=== PATIENT | female | born 1990 | race Caucasian/White ===

== ENCOUNTER 2024-12-06 13:22 | Emergency (ER) | payer SELFPAY ==
[2024-12-06 13:28] VITALS: BP 134/77; BMI 24.1
--- NOTE | 2024-12-06 14:12 | ED.GENMED ---
History of Present Illness
General
Chief Complaint: Foreign Body Ingestion
Source: patient
Exam Limitations: none
Time Seen by Provider: 12/06/24 14:04
Nursing documentation reviewed up to this point in time: agreed with
History of Present Illness
History of Present Illness:
Patient is a 34-year-old female who presents under police custody with concerns of possible foreign body seen on intake scan at residential. Patient apparently had a warrant for her arrest and was taken to the residential today where she had an intake imaging
scan performed which showed an abnormality in the pelvis region. She will refuse patient has there is concern that she may have a foreign body in her rectal/vaginal region. Patient sent to the emergency department for further imaging and
evaluation.
Patient denies any foreign body insertion. Patient denies any fever or chills or abdominal pain. Patient denies any chest pain or shortness of breath. No abnormal vaginal discharge.
She does admit to fentanyl use, most recently used at 3 AM.
Review of Systems
Review of Systems
Allergies reviewed?: Yes
All Other Systems: ROS reviewed and negative except as documented in HPI and ROS
Phy Exam
Physical Exam
Physical Exam:
Vitals: Mildly hypertensive, otherwise vital signs stable. Afebrile
General: Patient is in no apparent distress
Skin: Warm and dry.
Head: Normocephalic, atraumatic
Eyes: Sclera nonicteric. Pupils 6 mm and reactive to light bilaterally
Throat: No visualized foreign body. Protecting airway
Neck: Normal ROM, no meningismus
Cardiac: Regular rate and rhythm, no murmurs.
Pulm: Normal respiratory effort, no wheezes, rales, rhonchi heard on exam
.
Abdomen: Abdomen soft and nontender
Rectal: Deferred by patient
Pelvic: Deferred by patient
Extremities: No evidence of cyanosis or edema.
Neuro: AAOx3. Mildly
Psychiatric: Normal affect.
Course
Orders/Labs/Results
Orders:
Orders
12/06/24 14:24
Test Result ONCE
Pelvis, 1 or 2 Views CR [CR Pelvis - 1 Or 2 Views ] Urgent
Comment:
Reason For Exam: possible foreign body on residential intake
12/06/24 14:34
HCG, Urine Qualitative Screen Urgent
Date Specimen was Collected: 12/06/24
Time Specimen was Collected: 14:27
12/06/24 16:00
Buprenorphine [Subutex] 2 mg SL DAILY
12/06/24 16:06
Tizanidine [Zanaflex] 2 mg PO NOW STA
Vital Signs
Initial and Last Documented VS:
Initial Vital Signs
Temp Pulse Resp BP Pulse Ox
98.7 F 83 17 134/77 100
12/06/24 13:28 12/06/24 13:28 12/06/24 13:28 12/06/24 13:28 12/06/24 13:28
Last Documented Vital Signs
Temp Pulse Resp BP Pulse Ox
98.0 F 99 20 158/79 100
12/06/24 15:58 12/06/24 15:58 12/06/24 15:58 12/06/24 15:58 12/06/24 15:58
MDM/Problems Addressed
Differential Diagnosis Includes:
Not limited to: Foreign body, opioid withdrawal, etc.
MDM/Problems Addressed:
34-year-old female presenting under police custody with concerns of foreign body seen on residential intake skin. Patient has no current complaints. Patient has stable vital signs. Physical exam as above. Patient declines pelvic or rectal exam and
denies placing any foreign bodies. test negative. X-ray of pelvis shows no radiopaque foreign bodies. Prior to discharge - patient became somewhat agitated as well as tremulous which I suspect is likely secondary to opioid withdrawal.
She states she last use fentanyl this morning at 3 AM. It is too soon for Suboxone. Given symptoms of mild withdrawal�patient was given a dose of tizanidine in the emergency department with some improvement. She remained hemodynamically stable.
She declined any further treatment in the emergency department. Patient will be discharged to residential for incarceration and continued management of opioid withdrawal symptoms. Case discussed with attending physician.
Chronic conditions affecting care:
Opioid use disorder
Acute Exacerbation and/or Progression of Chronic Illness:
Acute opioid withdrawal
*Radiology
Radiology exam reviewed: preliminary read by ED provider (No radiopaque foreign bodies noted on pelvis x-ray) and radiology read reviewed
*Pulse Oximetry
SaO2: 100
Oxygen Mode of Delivery: Room air
*EKG
Interpreted by ED Provider?: NA
*Costume Director Interpretation
Rate: Costume Director- N/A
*Critical Care Note
Total Time (30-74mins, 75-104mins- exclusive of procedures): Not Applicable
ED Attending Note
-
Portions of this chart may have been created with voice recognition software.� Occasional wrong word or��sound alike� substitutions may have occurred due to the inherent limitations of voice recognition software.
Discharge Plan
Departure
Patient Disposition: [facility]
Date of Disposition: 12/06/24
Time of Disposition: 16:45
Patient with high blood pressure during this ER visit?: Yes
Condition: Good
Covid-19: Not Applicable
Discharge Problem:
Medical clearance for incarceration
Instructions: Substance use disorder, Opioid withdrawal - ED discharge instructions
Referrals:
NONE,* [Family Provider, Internal Medicine]
Activity Restrictions/Additional Instructions:
RETURN TO THE EMERGENCY DEPARTMENT WITH ANY FEVERS, INTRACTABLE PAIN, INTRACTABLE NAUSEA/VOMITING, SEVERE WITHDRAWAL SYMPTOMS, OR ANY OTHER CONCERNS
- Your test was negative in the emergency department. Your x-ray showed no evidence of radiopaque foreign body
- You were treated with a dose of tizanidine to treat your withdrawal symptoms.
Patient is medically cleared for incarceration
Interventions
Interventions:
*Risk Screen - Suicide Last Done: 12/06/24 13:28
*General Assessment Last Done: 12/06/24 13:28
*Neglect/Abuse Screening Last Done: 12/06/24 13:28
*ED- Fall Risk Assessment Last Done: 12/06/24 13:28
*ED COVID-19 Vaccine History Last Done: 12/06/24 13:28
*Nursing Disposition Last Done: 12/06/24 16:56
[facility] Assessment Last Done: 12/06/24 13:28
ED- Pulmonary Assessment Last Done: 12/06/24 13:28
ED-EENT Assessment Last Done: 12/06/24 13:28
Discharge Date and Time
Discharge Date/Time: 12/06/24 16:57
Print Language: NIGERIEN
[2024-12-06 14:48] LABS: HCG, Urine Qualitative Screen Negative
[2024-12-06 15:58] VITALS: BP 158/79
[2024-12-06] MEDS: ZANAFLEX 2 MG PO (16:13)
== END 2024-12-06 16:57 ==
LOC: EMR 13:22
PROVIDERS: Physician Assistant; EMERGENCY PHYSICIAN Emergency Medicine
DX: Z02.89 Encounter for other administrative examinations (principal); Z65.3 Problems related to other legal circumstances
CPT/HCPCS: 99285; 72170; 81025